=== PATIENT | female | born 1975 | race Caucasian/White ===

== ENCOUNTER 2016-12-27 13:27 | Emergency (ER) | payer BC, MEDICAID, OTHER ==
[2016-12-27 13:58] VITALS: BP 116/69
[2016-12-27] MEDS ORDERED: predniSONE 20 MG Tab PO ONE (14:28)
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
[2016-12-27] MEDS ORDERED: Acetaminophen/HYDROcodone 325-5 MG Tab PO ONE (16:42)
--- NOTE | 2016-12-28 07:49 | CR ---
Pelvis: AP view of the pelvis was obtained. Comparison: No previous study. Joint spaces within both hips are maintained. Sacroiliac joints appear within normal limits. Soft tissue calcifications are seen within both buttocks which are incidental. No fracture or other bony abnormality is seen. Impression: 1. Nothing acute is seen on AP pelvis study. Diagnostic code #2
--- NOTE | 2016-12-28 07:50 | CR ---
Lumbar spine: AP, lateral and coned-down lateral views centered to the lumbosacral junction were obtained. Slight spondylolisthesis is noted L4-L5 which is felt compatible with degenerative apophyseal change. Endplate osteophytes are seen within the lower thoracic spine and within L1. Mild disc space narrowing is noted at T12-L1. Other disc spaces are maintained. Vertebral body heights are maintained. Minimal scoliosis is noted. Pedicles as well as transverse and spinous processes are intact. Impression: 1. Mild degenerative change. Minimal scoliosis. 2. Nothing acute is appreciated on three-view lumbar spine study. Diagnostic code #2
== END 2016-12-27 16:50 | disposition home or self-care (01) ==
LOC: JD.ED 13:27
DX: S39.012A Strain of muscle, fascia and tendon of lower back, initial encounter (principal); S20.221A Contusion of right back wall of thorax, initial encounter; F41.9 Anxiety disorder, unspecified; F32.9 Major depressive disorder, single episode, unspecified; Z88.8 Allergy status to other drugs, medicaments and biological substances; Z79.899 Other long term (current) drug therapy; Z87.891 Personal history of nicotine dependence; W51.XXXA Accidental striking against or bumped into by another person, initial encounter
CPT/HCPCS: 72100; 72170; 99283; A9270

== ENCOUNTER 2017-02-05 12:42 | Emergency (ER) | payer BC, OTHER ==
[2017-02-05 13:03] VITALS: BP 130/83
[2017-02-05] MEDS ORDERED: Ketorolac 60 MG/2 ML SDV IM ONE (14:01)
[2017-02-05] MEDS ORDERED: Acetaminophen/HYDROcodone 325-5 MG Tab PO ONE (14:01)
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
== END 2017-02-05 14:50 | disposition home or self-care (01) ==
LOC: JD.ED 12:42
DX: S30.0XXA Contusion of lower back and pelvis, initial encounter (principal); K21.9 Gastro-esophageal reflux disease without esophagitis; F41.9 Anxiety disorder, unspecified; F32.9 Major depressive disorder, single episode, unspecified; Z88.8 Allergy status to other drugs, medicaments and biological substances; Z87.891 Personal history of nicotine dependence; Y04.8XXA Assault by other bodily force, initial encounter
CPT/HCPCS: 96372; 99283; A9270; J1885

== ENCOUNTER 2017-11-03 19:11 | Emergency (ER) | payer BC, MEDICAID ==
[2017-11-03] MEDS ORDERED: LORazepam 2 MG/ML SDV IVPUSH STA (19:44)
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
[2017-11-03] MEDS ORDERED: Prochlorperazine 10 MG/2 ML SDV IVPUSH ONE (20:07)
[2017-11-03] MEDS ORDERED: Magnesium Sulfate/Water 2 GM in Premix Bag 1 BAG IV ONE (21:19)
[2017-11-03] MEDS ORDERED: Potassium Chloride 10% 20 MEQ/15 ML Soln 30 ML UD Cup PO STA (22:31)
--- NOTE | 2017-11-04 06:47 | CR ---
Chest: Two views of the chest were obtained. Comparison: No prior chest x-ray. Heart size and mediastinum are normal. Lungs are clear. Bony structures appear within normal limits. Impression: 1. Nothing acute is appreciated on two-view chest x-ray. Diagnostic code #1
== END 2017-11-04 01:15 | disposition home or self-care (01) ==
LOC: JD.ED 19:11
DX: E83.42 Hypomagnesemia (principal); E87.6 Hypokalemia; F45.8 Other somatoform disorders; F41.9 Anxiety disorder, unspecified; Z88.8 Allergy status to other drugs, medicaments and biological substances; Z79.899 Other long term (current) drug therapy; Z87.891 Personal history of nicotine dependence
CPT/HCPCS: 36415; 36600; 71046; 80053; 81001; 82803; 83735; 84443; 84484; 84702; 85025; 85379; 85610; 85730; 87086; 93005; 96365; 96375; 99284; A9270; J0780; J2060; 93010; J3475

== ENCOUNTER 2019-04-20 18:45 | Observation (INO) | payer MEDICAID ==
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
--- NOTE | 2019-04-20 19:36 | CT ---
Head CT Technique: Multiple axial sections through the brain were obtained. Intravenous contrast was not utilized. Comparison: No prior intracranial imaging. Findings: Ventricles along with basal cisterns and sulci over the convexities appear within normal limits for the patient's age. Small low density finding is noted within the right basal ganglia. Differential includes an old lacunar infarct versus prominent perivascular space. No other abnormal parenchymal densities are seen. No evidence of intracranial hemorrhage. No midline shift or mass effect is seen. Mastoid sinuses are clear. Visualized paranasal sinuses show nothing acute. No acute calvarial abnormality is appreciated. Impression: 1. Small low density finding is noted within the right basal ganglia. Differential includes old lacunar infarct as well as prominent perivascular space. 2. No additional abnormality is appreciated on noncontrast head CT study. Diagnostic code #2
[2019-04-20] MEDS ORDERED: Aspirin 81 MG Tab.Chew PO STA (21:37)
[2019-04-20] MEDS: Sodium Chloride 0.9% 1,000 ML IV SCH (22:11)
[2019-04-20] MEDS ORDERED: Ketorolac 30 MG/ML SDV IV PRN (22:46)
[2019-04-20] MEDS ORDERED: Albuterol/Ipratropium 3.0-0.5 MG/3 ML Neb Soln NEB PRN (22:46)
[2019-04-20] MEDS ORDERED: Docusate Sodium 100 MG Cap PO PRN (22:46)
[2019-04-20] MEDS ORDERED: HYDROmorphone 0.5 MG/0.5 ML Syringe IVPUSH PRN (22:46)
[2019-04-20] MEDS ORDERED: Acetaminophen 325 MG Tab PO PRN (22:46)
[2019-04-20] MEDS ORDERED: Polyethylene Glycol 3350 Powder 17 GM Packet PO PRN (22:46)
[2019-04-20] MEDS ORDERED: Promethazine 6.25 MG in Sodium Chloride 0.9% 50 ML IV PRN (22:46)
[2019-04-20] MEDS ORDERED: Bisacodyl 5 MG Tab PO PRN (22:46)
[2019-04-20] MEDS ORDERED: Ondansetron 4 MG/2 ML SDV IV PRN (22:46)
[2019-04-20] MEDS ORDERED: Temazepam 15 MG Cap PO PRN (22:46)
[2019-04-20] MEDS ORDERED: LORazepam 2 MG/ML SDV IV PRN (22:46)
--- NOTE | 2019-04-20 22:46 | PCM.HP.2 ---
H&P History of Present Illness - General Date of Service: 04/20/19 Admit Problem/Dx: Admission Diagnosis/Problem Admission Diagnosis/Problem Paresthesia Source of Information: Patient, Old Records, Provider, RN Notes Reviewed History Limitations: Reports: No Limitations - History of Present Illness Initial Comments - Free Text/Narative: This is a 43 yo female with past medical hx/o Impaired Vision, GERD, Arthritis, Nicotine Uses Disorder, Anxiety, and Depression who comes in for evaluation of left upper extremity numbness as as well diffuse paresthesia that started after she woke up past 9 AM this morning. She denies any hx/o TIA or CVA. She denies any associated symptoms. Her initial work up in ED was unremarkable. Her Head CT scan report read as small low-density finding is noted within the right basal ganglia. Differential includes old lacunar infarct as well as prominent perivascular space. No additional abnormality is appreciated on noncontrast head CT study. Her case was discussed with Dr. Hampton, Neurologist, in [place] and he recommended patient to be admitted for stroke work up. - Related Data Allergies/Adverse Reactions: Allergies Allergy/AdvReac Type Severity Reaction Status Date / Time methylprednisolone Allergy Itching Verified 11/03/17 19:20 [From Medrol] Past Medical History - Past Health History Medical/Surgical History: Denies Medical/Surgical History HEENT History: Reports: Impaired Vision Gastrointestinal History: Reports: GERD Musculoskeletal History: Reports: Arthritis (spine), Fracture (left forearm) Other Musculoskeletal History: bilateral hand pain Psychiatric History: Reports: Anxiety, Depression Endocrine/Metabolic History: Reports: Obesity/BMI 30+ - Infectious Disease History Infectious Disease History: Reports: Chicken Pox - Past Surgical History Musculoskeletal Surgical History: Reports: Carpal Tunnel (right only), Nerve Relocation (;eft ulnar, 10/18/2017), ORIF (left forearm) Social & Family History - Family History Family Medical History: Noncontributory - Tobacco Use Smoking Status *Q: Current Every Day Smoker Years of Tobacco use: 36 Packs/Tins Daily: 2 - Caffeine Use Caffeine Use: Reports: Soda - Recreational Drug Use Recreational Drug Use: Yes Drug Use in Last 12 Months: No Recreational Drug Type: Reports: Marijuana/Hashish (last smoked when 16 or 17 years old) - Living Situation & Occupation Living situation: Reports: Single, Alone Occupation: Unemployed H&P Review of Systems - Review of Systems: Review Of Systems: ROS reveals no pertinent complaints other than HPI. Exam - Exam Exam: See Below - Vital Signs Vital Signs: Last Vital Signs Temp 36.1 C 04/20/19 19:07 Pulse 86 04/20/19 19:07 Resp 20 04/20/19 19:07 BP 113/78 04/20/19 19:07 Pulse Ox 100 04/20/19 19:07 Orthostatic Blood Pressure [ 113/79 Standing] Orthostatic Blood Pressure [ 106/70 Sitting] Orthostatic Blood Pressure [ 107/72 Supine] Weight: 58.967 kg - Exam General: Alert, Oriented, Cooperative HEENT: Conjunctiva Clear, EACs Clear, EOMI, Hearing Intact, Mucosa Moist & [place] , Nares Patent, Normal Nasal Septum, Posterior Pharynx Clear, Pupils Equal, Pupils Reactive Neck: Supple, Trachea Midline Lungs: Clear to Auscultation, Normal Respiratory Effort Cardiovascular: Regular Rate, Regular Rhythm GI/Abdominal Exam: Normal Bowel Sounds, Soft, Non-Tender, No Organomegaly, No Distention, No Abnormal Bruit (Female) Exam: Deferred Rectal (Female) Exam: Deferred Back Exam: Normal Inspection, Decreased Range of Motion Extremities: Normal Inspection, Normal Range of Motion, Non-Tender, No Pedal Edema, Normal Capillary Refill Peripheral Pulses: 2+: Posterior Tibial (L), Posterior Tibial (R), Dorsalis Pedis (L), Dorsalis Pedis (R) Skin: Warm, Dry, Intact Neuro Extensive - Mental Status: Oriented x3, Normal Cognition, Memory Intact Neuro Extensive - Motor, Sensory, Reflexes: Normal Gait, Other (Paresthesia on left leg: "ants crawling"; weakness on right upper extermity), Motor/Sensory Deficits (Left Upper Extremity: reduced sensation and some weakness). No: CN II -XII Intact, Tremor - Patient Data Lab Results Last 24 hrs: Laboratory Results - last 24 hr 04/20/19 04/20/19 04/20/19 Range/Units 19:03 19:29 19:29 WBC 7.89 (3.98-10.04) K/mm3 RBC 4.26 (3.98-5.22) M/mm3 Hgb 12.9 (11.2-15.7) gm/L Hct 39.0 (34.1-44.9) % MCV 91.5 D (79.4-94.8) fl MCH 30.3 (25.6-32.2) pg MCHC 33.1 (32.2-35.5) g/dl RDW Std Deviation 43.8 (36.4-46.3) fL Plt Count 299 D (182-369) K/mm3 MPV 8.9 L (9.4-12.3) fl Neut % (Auto) 57.0 (34.0-71.1) % Lymph % (Auto) 35.1 (19.3-51.7) % [place] % (Auto) 7.0 (4.7-12.5) % Eos % (Auto) 0.5 L (0.7-5.8) Baso % (Auto) 0.1 (0.1-1.2) % Neut # (Auto) 4.50 (1.56-6.13) K/mm3 Lymph # (Auto) 2.77 (1.18-3.74) K/mm3 [place] # (Auto) 0.55 H (0.24-0.36) K/mm3 Eos # (Auto) 0.04 (0.04-0.36) K/mm3 Baso # (Auto) 0.01 (0.01-0.08) K/mm3 D-Dimer, Quantitative (0.19-0.50) mg/L Puncture Site ABG pH (7.35-7.45) ABG pCO2 (35.0-45.0) mmHg ABG pO2 (80.0-100.0) mmHg ABG HCO3 (22.0-26.0) meq/L ABG O2 Saturation (96.0-97.0) % ABG Base Excess (-2-2.0) Talha Test A-a Gradient mmHg O2 Delivery Device FiO2 (21.00-100.00) % Sodium 143 (136-145) mEq/L Potassium 3.7 (3.5-5.1) mEq/L Chloride 107 D (98-107) mEq/L Carbon Dioxide 28 (21-32) mEq/L Anion Gap 11.7 (5-15) BUN 17 (7-18) mg/dL Creatinine 0.6 (0.55-1.02) mg/dL Est Cr Clr Drug Dosing 85.05 mL/min Estimated GFR (MDRD) > 60 (>60) mL/min BUN/Creatinine Ratio 28.3 H (14-18) Glucose 91 (74-106) mg/dL POC Glucose 80 (70-105) mg/dL Calcium 9.0 (8.5-10.1) mg/dL Magnesium 1.8 (1.8-2.4) mg/dl Total Bilirubin 0.2 (0.2-1.0) mg/dL AST 16 (15-37) U/L ALT 20 (14-59) U/L Alkaline Phosphatase 73 (46-116) U/L Troponin I < 0.017 (0.00-0.056) ng/mL Total Protein 6.9 (6.4-8.2) g/dl Albumin 3.2 L (3.4-5.0) g/dl Globulin 3.7 gm/dL Albumin/Globulin Ratio 0.9 L (1-2) TSH 3rd Generation 1.926 (0.358-3.74) uIU/mL Urine Color (Yellow) Urine Appearance (Clear) Urine pH (5.0-8.0) Ur Specific [place] (1.005-1.030) Urine Protein (Negative) Urine Glucose (UA) (Negative) Urine Ketones (Negative) Urine Occult Blood (Negative) Urine Nitrite (Negative) Urine Bilirubin (Negative) Urine Urobilinogen (0.2-1.0) Ur Leukocyte Esterase (Negative) Urine RBC (0-5) /hpf Urine WBC (0-5) /hpf Ur Squamous Epith Cells (0-5) /hpf Amorphous Sediment (NOT SEEN) /hpf Urine Bacteria (FEW) /hpf Urine Mucus (FEW) /hpf Urine HCG, Qual (NEGATIVE) 04/20/19 04/20/19 04/20/19 Range/Units 19:29 19:40 20:30 WBC (3.98-10.04) K/mm3 RBC (3.98-5.22) M/mm3 Hgb (11.2-15.7) gm/L Hct (34.1-44.9) % MCV (79.4-94.8) fl MCH (25.6-32.2) pg MCHC (32.2-35.5) g/dl RDW Std Deviation (36.4-46.3) fL Plt Count (182-369) K/mm3 MPV (9.4-12.3) fl Neut % (Auto) (34.0-71.1) % Lymph % (Auto) (19.3-51.7) % [place] % (Auto) (4.7-12.5) % Eos % (Auto) (0.7-5.8) Baso % (Auto) (0.1-1.2) % Neut # (Auto) (1.56-6.13) K/mm3 Lymph # (Auto) (1.18-3.74) K/mm3 [place] # (Auto) (0.24-0.36) K/mm3 Eos # (Auto) (0.04-0.36) K/mm3 Baso # (Auto) (0.01-0.08) K/mm3 D-Dimer, Quantitative 0.20 (0.19-0.50) mg/L Puncture Site Rt radial ABG pH 7.47 H (7.35-7.45) ABG pCO2 34.5 L (35.0-45.0) mmHg ABG pO2 102.0 H (80.0-100.0) mmHg ABG HCO3 24.9 (22.0-26.0) meq/L ABG O2 Saturation 98.6 H (96.0-97.0) % ABG Base Excess 2.0 (-2-2.0) Talha Test Positive A-a Gradient 5 mmHg O2 Delivery Device Room air FiO2 21.00 (21.00-100.00) % Sodium (136-145) mEq/L Potassium (3.5-5.1) mEq/L Chloride (98-107) mEq/L Carbon Dioxide (21-32) mEq/L Anion Gap (5-15) BUN (7-18) mg/dL Creatinine (0.55-1.02) mg/dL Est Cr Clr Drug Dosing mL/min Estimated GFR (MDRD) (>60) mL/min BUN/Creatinine Ratio (14-18) Glucose (74-106) mg/dL POC Glucose (70-105) mg/dL Calcium (8.5-10.1) mg/dL Magnesium (1.8-2.4) mg/dl Total Bilirubin (0.2-1.0) mg/dL AST (15-37) U/L ALT (14-59) U/L Alkaline Phosphatase (46-116) U/L Troponin I (0.00-0.056) ng/mL Total Protein (6.4-8.2) g/dl Albumin (3.4-5.0) g/dl Globulin gm/dL Albumin/Globulin Ratio (1-2) TSH 3rd Generation (0.358-3.74) uIU/mL Urine Color Yellow (Yellow) Urine Appearance Cloudy H (Clear) Urine pH 8.5 H (5.0-8.0) Ur Specific [place] 1.020 (1.005-1.030) Urine Protein Negative (Negative) Urine Glucose (UA) Negative (Negative) Urine Ketones Negative (Negative) Urine Occult Blood Negative (Negative) Urine Nitrite Negative (Negative) Urine Bilirubin Negative (Negative) Urine Urobilinogen 0.2 (0.2-1.0) Ur Leukocyte Esterase Negative (Negative) Urine RBC 0-5 (0-5) /hpf Urine WBC 0-5 (0-5) /hpf Ur Squamous Epith Cells 0-5 (0-5) /hpf Amorphous Sediment Many H (NOT SEEN) /hpf Urine Bacteria Few (FEW) /hpf Urine Mucus Not seen (FEW) /hpf Urine HCG, Qual (NEGATIVE) 04/20/19 Range/Units 20:30 WBC (3.98-10.04) K/mm3 RBC (3.98-5.22) M/mm3 Hgb (11.2-15.7) gm/L Hct (34.1-44.9) % MCV (79.4-94.8) fl MCH (25.6-32.2) pg MCHC (32.2-35.5) g/dl RDW Std Deviation (36.4-46.3) fL Plt Count (182-369) K/mm3 MPV (9.4-12.3) fl Neut % (Auto) (34.0-71.1) % Lymph % (Auto) (19.3-51.7) % [place] % (Auto) (4.7-12.5) % Eos % (Auto) (0.7-5.8) Baso % (Auto) (0.1-1.2) % Neut # (Auto) (1.56-6.13) K/mm3 Lymph # (Auto) (1.18-3.74) K/mm3 [place] # (Auto) (0.24-0.36) K/mm3 Eos # (Auto) (0.04-0.36) K/mm3 Baso # (Auto) (0.01-0.08) K/mm3 D-Dimer, Quantitative (0.19-0.50) mg/L Puncture Site ABG pH (7.35-7.45) ABG pCO2 (35.0-45.0) mmHg ABG pO2 (80.0-100.0) mmHg ABG HCO3 (22.0-26.0) meq/L ABG O2 Saturation (96.0-97.0) % ABG Base Excess (-2-2.0) [place]ha Test A-a Gradient mmHg O2 Delivery Device FiO2 (21.00-100.00) % Sodium (136-145) mEq/L Potassium (3.5-5.1) mEq/L Chloride (98-107) mEq/L Carbon Dioxide (21-32) mEq/L Anion Gap (5-15) BUN (7-18) mg/dL Creatinine (0.55-1.02) mg/dL Est Cr Clr Drug Dosing mL/min Estimated GFR (MDRD) (>60) mL/min BUN/Creatinine Ratio (14-18) Glucose (74-106) mg/dL POC Glucose (70-105) mg/dL Calcium (8.5-10.1) mg/dL Magnesium (1.8-2.4) mg/dl Total Bilirubin (0.2-1.0) mg/dL AST (15-37) U/L ALT (14-59) U/L Alkaline Phosphatase (46-116) U/L Troponin I (0.00-0.056) ng/mL Total Protein (6.4-8.2) g/dl Albumin (3.4-5.0) g/dl Globulin gm/dL Albumin/Globulin Ratio (1-2) TSH 3rd Generation (0.358-3.74) uIU/mL Urine Color (Yellow) Urine Appearance (Clear) Urine pH (5.0-8.0) Ur Specific [place] (1.005-1.030) Urine Protein (Negative) Urine Glucose (UA) (Negative) Urine Ketones (Negative) Urine Occult Blood (Negative) Urine Nitrite (Negative) Urine Bilirubin (Negative) Urine Urobilinogen (0.2-1.0) Ur Leukocyte Esterase (Negative) Urine RBC (0-5) /hpf Urine WBC (0-5) /hpf Ur Squamous Epith Cells (0-5) /hpf Amorphous Sediment (NOT SEEN) /hpf Urine Bacteria (FEW) /hpf Urine Mucus (FEW) /hpf Urine HCG, Qual Negative (NEGATIVE) Result Diagrams: 04/21/19 05:26 04/21/19 05:26 EKG INTERPRETATION EKG Date: 04/20/19 Time: 19:22 Rhythm: NSR Rate (Beats/Min): 85 [place]: LAD-Left [place] Deviation P-Wave: Present QRS: Normal ST-T: Normal QT: Normal Comparison: Change From Previous EKG Problem List Initiated/Reviewed/Updated: Yes Orders Last 24hrs: Active Orders 24 hr Category Date Time Status Patient Status [ADT] Routine ADT 04/20/19 22:23 Active Accu Check [Blood Glucose Check, Bedside] [RC] ONETIME Care 04/20/19 19:08 Active EKG Documentation Completion [RC] STAT Care 04/20/19 19:09 Active Orthostatic Vital Signs [RC] STAT Care 04/20/19 19:09 Active Ang Head [CT] Routine Exams 04/21/19 08:00 Ordered Ang Neck [CT] Routine Exams 04/21/19 08:00 Ordered Chest 2V [CR] Stat Exams 04/20/19 19:27 Taken Sodium Chloride 0.9% [Normal Saline] 1,000 ml Med 04/20/19 22:00 Active IV ASDIRECTED Medication Orders Sodium Chloride (Normal Saline) 1,000 mls @ 100 mls/hr IV ASDIRECTED DAVID Last Admin: 04/20/19 22:11 Dose: 100 mls/hr Assessment/Plan Comment:: Assessment: Acute: Stroke/CVA - Risk Factors: None - Left upper extremity numbness and paresthesia that started after 9 AM ( woke up from sleep) - NIH score of 4 in ED; 0-[address] - She received ASA in ED; will continue in AM - Case discussed with neurologist (Dr. Hampton) in [place] by ED Provider; recommendations were to give the patient aspirin, perform a CT angiogram of her head and neck, then admit her for an MRI in the morning - Head CT scan report read as small low-density finding is noted within the right basal ganglia. Differential includes old lacunar infarct as well as prominent perivascular space. No additional abnormality is appreciated on noncontrast head CT study. Note: There are no prior CT scans of the head or MRIs of the brain to compare - Stroke/TIA: Brain MRI, 2D echo in AM, Telemetry, Lipid Panel, [employer], and PT/ OT - Neurological exam per unit protocol - DDx: Psych induced neurological symptoms Nicotine Use Disorder - Quit in 2014 but went back to smoking lately - smokes about 1.5 ppd - Counseled on Smoking Cessation - Nicotine Patch daily Depression with Psychotic features - She is seeing things i.e bubbles - Diagnosed in the past with psychosis - Dr. Bucio consult Chronic: Impaired Vision, GERD, Arthritis, Nicotine Uses Disorder, Anxiety, and Depression Plan: Admit to OBS with Tele Resume Home Meds Routine AM Labs UA and screening negative Head and Neck CTA ordered in ED Stroke/TIA Work up as above Bedside swallow eval ASA and Statin UDS RT/PT/OT to assess and treat Fall precautions SW/CM for d/c planning Code status: full Additional orders as above - Mortality Measure Prognosis:: Good
[2019-04-21] MEDS ORDERED: Sodium Chloride 0.9% 10 ML Syringe FLUSH PRN (07:46)
[2019-04-21] MEDS ORDERED: Iopamidol 755 Mg/ML 100 ML Bottle IVPUSH ONE (07:46)
[2019-04-21] MEDS ORDERED: Sodium Chloride 0.9% 100 ML IV SCH (08:00)
[2019-04-21] MEDS ORDERED: Nicotine 21 MG/24 Hr Patch TRDERM SCH (09:00)
[2019-04-21] MEDS ORDERED: Aspirin 81 MG Tab.EC PO SCH (09:00)
[2019-04-21] MEDS: Sodium Chloride 0.9% 1,000 ML IV SCH (09:03)
--- NOTE | 2019-04-21 09:10 | CR ---
Chest: Two views of the chest were obtained. Comparison: Prior chest x-ray of 11/03/17. Heart size and mediastinum are normal. Lungs are clear. Bony structures are unremarkable for the patient's age. Impression: 1. Nothing acute is appreciated on two-view chest x-ray. Diagnostic code #1
--- NOTE | 2019-04-21 09:28 | MR ---
MRI brain Technique: T1 sagittal; T2, T2 FLAIR, T1 and diffusion axial; T1 and T2 gradient echo coronal images were obtained. Comparison: Previous head CT study of 04/20/19. Findings: Ventricles along with basal cisterns and sulci over the convexities are within normal limits for the patient's age. Normal signal void is seen within the major cerebral arteries within the skull base. Minimally prominent perivascular spaces are seen within both basal ganglia which is a normal variant. No abnormal signal is seen within the brain parenchyma. No midline shift or mass effect is seen. No acute diffusion abnormalities are seen. Impression: 1. Incidental perivascular spaces within both basal ganglia. 2. MRI study of the brain is otherwise unremarkable. There is specifically no acute diffusion abnormalities being identified. Diagnostic code #2
--- NOTE | 2019-04-21 10:13 | CT ---
CT angiogram of neck Technique: Multiple axial sections through the neck were obtained. Intravenous contrast was utilized. Multiple minute images were obtained. Findings: Small portion of the visualized lung apices are clear. Scattered lymph nodes are seen which are felt to be within normal limits. Parotid and submandibular salivary glands are unremarkable. No neck mass is seen. Common carotid arteries on both sides are patent. Vertebral arteries on both sides are patent. Carotid bulbs on both sides appear within normal limits. Internal carotid arteries also appear within normal limits. No focal stenosis or occlusion is seen. No dissection is identified. Proximal visualized left subclavian artery is patent. Impression: 1. No abnormality is appreciated on CT angiogram of the neck. Diagnostic code #1
--- NOTE | 2019-04-21 10:13 | CT ---
MR angiogram of brain Technique: Multiple axial sections through the brain were obtained. Intravenous contrast was utilized. Study performed as a CT angiogram protocol. Multiple MIP images were obtained in multiple projections. Comparison: Distal vertebral arteries are patent. Basilar artery is patent. Both distal internal carotid arteries are patent. Middle and anterior cerebral arteries are patent without focal narrowing or occlusion. Both posterior cerebral arteries also appear patent with no stenosis or occlusion. Impression: 1. No abnormality is identified on CT angiogram study centered to the [place]. Diagnostic code #1
[2019-04-21] MEDS ORDERED: risperiDONE 0.5 MG Tab PO SCH (11:15)
--- NOTE | 2019-04-21 14:38 | PCM.DCSUM1 ---
Discharge Summary - Hospital Course Free Text/Narrative:: 43 year old female with somatic compliants and hx of bipolar symptoms doing better and restarted on meds hx of angioedema on meds and ? lithium hx of constipation hx of insomnia chronic. HPI Initial Comments: see admit note Diagnosis: Stroke: No - Discharge Data Discharge Date: 04/21/19 Discharge Disposition: Home, Self-Care 01 Condition: Good - Discharge Diagnosis/Problem(s) (1) Bipolar disorder (manic depression) SNOMED Code(s): 68406133 ICD Code: F31.9 - BIPOLAR DISORDER, UNSPECIFIED Status: Acute Priority: High Current Visit: Yes Onset Date: 04/20/19 Problem Details: she has not been on any meds and had angioedema to some med ? lithium / // starting new meds but she does not follow up or comply and is at risk and this was discussed in detail with her . Qualifiers: Active/Remission status: currently active Current bipolar episode type: hypomanic Qualified Code(s): F31.0 - Bipolar disorder, current episode hypomanic (2) Paresthesia of left arm and leg SNOMED Code(s): 29316853, [id number], [id number] ICD Code: R20.2 - PARESTHESIA OF SKIN Status: Acute Priority: Low Current Visit: Yes Onset Date: 04/20/19 - Patient Summary/Data Consults: Consultations 04/20/19 22:46 Consult to Case Management/Manager Of Training [CONS] Routine OT Evaluation and Treatment [CONS] Routine PT Evaluation and Treatment [CONS] Routine [employer] Evaluation and Treatment [CONS] Routine 04/20/19 23:20 Consult to Physician [CONS] Routine - Patient Instructions Diet: Heart Healthy Diet Activity: As Tolerated Driving: May Drive Today Other/Special Instructions: follow up if not doing well with meds with primary provider - Discharge Plan *PRESCRIPTION DRUG MONITORING PROGRAM REVIEWED*: Not Applicable *COPY OF PRESCRIPTION DRUG MONITORING REPORT IN PATIENT ESTEPHANIE: Not Applicable Prescriptions/Med Rec: QUEtiapine [SEROquel] 50 mg PO QPM #30 tab Sennosides/Docusate Sodium [Senna-Docusate Sodium Tablet] 2 each PO DAILY 60 Days #60 tablet Temazepam [Restoril] 15 mg PO BEDTIME PRN #30 cap PRN Reason: Sleep Topiramate [Topamax] 25 mg PO BID #60 tab Home Medications: Home Meds Acetaminophen [Tylenol] 650 mg PO Q4H PRN tablet 04/21/19 [Rx] Albuterol/Ipratropium [DuoNeb 3.0-0.5 MG/3 ML] 3 ml NEB Q4H PRN neb 04/21/19 [ Rx] Aspirin [Halfprin] 81 mg PO DAILY tab.ec 04/21/19 [Rx] QUEtiapine [SEROquel] 50 mg PO QPM #30 tab 04/21/19 [Rx] Sennosides/Docusate Sodium [Senna-Docusate Sodium Tablet] 2 each PO DAILY 60 Days #60 tablet 04/21/19 [Rx] Temazepam [Restoril] 15 mg PO BEDTIME PRN #30 cap 04/21/19 [Rx] Topiramate [Topamax] 25 mg PO BID #60 tab 04/21/19 [Rx] Patient Handouts: Steps to Quit Smoking Referrals: Jacques Roberson MD [Primary Care Provider] - 05/04/19 3:30 pm (Please check in at 3:15pm checkin time; you have been placed a cancellation list, if an earlier appointment becomes available the clinic will contact you to be seen sooner.) - Discharge Summary/Plan Comment DC Time >30 min.: Yes - General Info Date of Service: 04/21/19 Admission Dx/Problem (Free Text: Admission Diagnosis/Problem Admission Diagnosis/Problem Paresthesia consult Dr Bucio rec. she can be discharged and start meds and follow up. hx of angioedema hold [place] as she has not been taking x 3 months hx of bipolar symptoms start seraquel start topamax. dc lamictal. dc zyperexia. see primary provider next week. DR Bucio in 2-3 weeks - Review of Systems General: Reports: No Symptoms HEENT: Reports: No Symptoms Pulmonary: Reports: No Symptoms Cardiovascular: Reports: No Symptoms Gastrointestinal: Reports: No Symptoms Genitourinary: Reports: No Symptoms Musculoskeletal: Reports: No Symptoms Skin: Reports: No Symptoms Neurological: Reports: No Symptoms Psychiatric: Reports: No Symptoms - Patient Data Vitals - Most Recent: Last Vital Signs Temp 37.0 C 04/21/19 05:31 Pulse 68 04/21/19 05:31 Resp 14 04/21/19 05:31 BP 93/62 04/21/19 05:31 Pulse Ox 96 04/21/19 05:31 Orthostatic Blood Pressure [ 113/79 Standing] Orthostatic Blood Pressure [ 106/70 Sitting] Orthostatic Blood Pressure [ 107/72 Supine] Weight - Most Recent: 58.967 kg I&O - Last 24 hours: Intake & Output 04/20/19 04/21/19 04/21/19 22:59 06:59 14:59 Intake Total 1065 Balance 1065 Lab Results - Last 24 hrs: Laboratory Results - last 24 hr 04/20/19 04/20/19 04/20/19 Range/Units 19:03 19:29 19:29 WBC 7.89 (3.98-10.04) K/mm3 RBC 4.26 (3.98-5.22) M/mm3 Hgb 12.9 (11.2-15.7) gm/L Hct 39.0 (34.1-44.9) % MCV 91.5 D (79.4-94.8) fl MCH 30.3 (25.6-32.2) pg MCHC 33.1 (32.2-35.5) g/dl RDW Std Deviation 43.8 (36.4-46.3) fL Plt Count 299 D (182-369) K/mm3 MPV 8.9 L (9.4-12.3) fl Neut % (Auto) 57.0 (34.0-71.1) % Lymph % (Auto) 35.1 (19.3-51.7) % [place] % (Auto) 7.0 (4.7-12.5) % Eos % (Auto) 0.5 L (0.7-5.8) Baso % (Auto) 0.1 (0.1-1.2) % Neut # (Auto) 4.50 (1.56-6.13) K/mm3 Lymph # (Auto) 2.77 (1.18-3.74) K/mm3 [place] # (Auto) 0.55 H (0.24-0.36) K/mm3 Eos # (Auto) 0.04 (0.04-0.36) K/mm3 Baso # (Auto) 0.01 (0.01-0.08) K/mm3 D-Dimer, Quantitative (0.19-0.50) mg/L Puncture Site ABG pH (7.35-7.45) ABG pCO2 (35.0-45.0) mmHg ABG pO2 (80.0-100.0) mmHg ABG HCO3 (22.0-26.0) meq/L ABG O2 Saturation (96.0-97.0) % ABG Base Excess (-2-2.0) Talha Test A-a Gradient mmHg O2 Delivery Device FiO2 (21.00-100.00) % Sodium 143 (136-145) mEq/L Potassium 3.7 (3.5-5.1) mEq/L Chloride 107 D (98-107) mEq/L Carbon Dioxide 28 (21-32) mEq/L Anion Gap 11.7 (5-15) BUN 17 (7-18) mg/dL Creatinine 0.6 (0.55-1.02) mg/dL Est Cr Clr Drug Dosing 85.05 mL/min Estimated GFR (MDRD) > 60 (>60) mL/min BUN/Creatinine Ratio 28.3 H (14-18) Glucose 91 (74-106) mg/dL POC Glucose 80 (70-105) mg/dL Calcium 9.0 (8.5-10.1) mg/dL Magnesium 1.8 (1.8-2.4) mg/dl Total Bilirubin 0.2 (0.2-1.0) mg/dL AST 16 (15-37) U/L ALT 20 (14-59) U/L Alkaline Phosphatase 73 (46-116) U/L Troponin I < 0.017 (0.00-0.056) ng/mL Total Protein 6.9 (6.4-8.2) g/dl Albumin 3.2 L (3.4-5.0) g/dl Globulin 3.7 gm/dL Albumin/Globulin Ratio 0.9 L (1-2) Triglycerides (<150) mg/dL Cholesterol (<200) mg/dL LDL Cholesterol Direct (<100) mg/dL HDL Cholesterol (40-59) mg/dL TSH 3rd Generation 1.926 (0.358-3.74) uIU/mL Urine Color (Yellow) Urine Appearance (Clear) Urine pH (5.0-8.0) Ur Specific [place] (1.005-1.030) Urine Protein (Negative) Urine Glucose (UA) (Negative) Urine Ketones (Negative) Urine Occult Blood (Negative) Urine Nitrite (Negative) Urine Bilirubin (Negative) Urine Urobilinogen (0.2-1.0) Ur Leukocyte Esterase (Negative) Urine RBC (0-5) /hpf Urine WBC (0-5) /hpf Ur Squamous Epith Cells (0-5) /hpf Amorphous Sediment (NOT SEEN) /hpf Urine Bacteria (FEW) /hpf Urine Mucus (FEW) /hpf Urine HCG, Qual (NEGATIVE) Urine Opiates Screen (ALMSPY=876) Ur Buprenorphine Scrn (CUTOFF=10) Ur Oxycodone Screen (MWL3GM=428) Urine Methadone Screen (FDDAEV=506) Ur Propoxyphene Screen (SHGCPD=681) Ur Barbiturates Screen (VEQXJV=902) Ur Tricyclics Screen (OJBZPF=621) Ur Phencyclidine Scrn (CUTOFF=25) Ur Amphetamine Screen (WBKCPV=987) U Methamphetamines Scrn (ZQXKHI=167) U Benzodiazepines Scrn (WPIXEJ=146) U Cocaine Metab Screen (COKBGV=574) U Marijuana (THC) Screen (CUTOFF=50) 04/20/19 04/20/19 04/20/19 Range/Units 19:29 19:40 20:30 WBC (3.98-10.04) K/mm3 RBC (3.98-5.22) M/mm3 Hgb (11.2-15.7) gm/L Hct (34.1-44.9) % MCV (79.4-94.8) fl MCH (25.6-32.2) pg MCHC (32.2-35.5) g/dl RDW Std Deviation (36.4-46.3) fL Plt Count (182-369) K/mm3 MPV (9.4-12.3) fl Neut % (Auto) (34.0-71.1) % Lymph % (Auto) (19.3-51.7) % [place] % (Auto) (4.7-12.5) % Eos % (Auto) (0.7-5.8) Baso % (Auto) (0.1-1.2) % Neut # (Auto) (1.56-6.13) K/mm3 Lymph # (Auto) (1.18-3.74) K/mm3 [place] # (Auto) (0.24-0.36) K/mm3 Eos # (Auto) (0.04-0.36) K/mm3 Baso # (Auto) (0.01-0.08) K/mm3 D-Dimer, Quantitative 0.20 (0.19-0.50) mg/L Puncture Site Rt radial ABG pH 7.47 H (7.35-7.45) ABG pCO2 34.5 L (35.0-45.0) mmHg ABG pO2 102.0 H (80.0-100.0) mmHg ABG HCO3 24.9 (22.0-26.0) meq/L ABG O2 Saturation 98.6 H (96.0-97.0) % ABG Base Excess 2.0 (-2-2.0) Talha Test Positive A-a Gradient 5 mmHg O2 Delivery Device Room air FiO2 21.00 (21.00-100.00) % Sodium (136-145) mEq/L Potassium (3.5-5.1) mEq/L Chloride (98-107) mEq/L Carbon Dioxide (21-32) mEq/L Anion Gap (5-15) BUN (7-18) mg/dL Creatinine (0.55-1.02) mg/dL Est Cr Clr Drug Dosing mL/min Estimated GFR (MDRD) (>60) mL/min BUN/Creatinine Ratio (14-18) Glucose (74-106) mg/dL POC Glucose (70-105) mg/dL Calcium (8.5-10.1) mg/dL Magnesium (1.8-2.4) mg/dl Total Bilirubin (0.2-1.0) mg/dL AST (15-37) U/L ALT (14-59) U/L Alkaline Phosphatase (46-116) U/L Troponin I (0.00-0.056) ng/mL Total Protein (6.4-8.2) g/dl Albumin (3.4-5.0) g/dl Globulin gm/dL Albumin/Globulin Ratio (1-2) Triglycerides (<150) mg/dL Cholesterol (<200) mg/dL LDL Cholesterol Direct (<100) mg/dL HDL Cholesterol (40-59) mg/dL TSH 3rd Generation (0.358-3.74) uIU/mL Urine Color Yellow (Yellow) Urine Appearance Cloudy H (Clear) Urine pH 8.5 H (5.0-8.0) Ur Specific [place] 1.020 (1.005-1.030) Urine Protein Negative (Negative) Urine Glucose (UA) Negative (Negative) Urine Ketones Negative (Negative) Urine Occult Blood Negative (Negative) Urine Nitrite Negative (Negative) Urine Bilirubin Negative (Negative) Urine Urobilinogen 0.2 (0.2-1.0) Ur Leukocyte Esterase Negative (Negative) Urine RBC 0-5 (0-5) /hpf Urine WBC 0-5 (0-5) /hpf Ur Squamous Epith Cells 0-5 (0-5) /hpf Amorphous Sediment Many H (NOT SEEN) /hpf Urine Bacteria Few (FEW) /hpf Urine Mucus Not seen (FEW) /hpf Urine HCG, Qual (NEGATIVE) Urine Opiates Screen (JXCKDK=374) Ur Buprenorphine Scrn (CUTOFF=10) Ur Oxycodone Screen (QYU9RY=959) Urine Methadone Screen (HAVEPF=106) Ur Propoxyphene Screen (MCGQEQ=139) Ur Barbiturates Screen (BFGLIL=995) Ur Tricyclics Screen (HTNWDS=786) Ur Phencyclidine Scrn (CUTOFF=25) Ur Amphetamine Screen (ICJPSA=892) U Methamphetamines Scrn (HOOULV=741) U Benzodiazepines Scrn (FBTYAG=347) U Cocaine Metab Screen (JAEFNQ=660) U Marijuana (THC) Screen (CUTOFF=50) 04/20/19 04/20/19 04/21/19 Range/Units 20:30 20:30 05:26 WBC 7.86 (3.98-10.04) K/mm3 RBC 3.95 L (3.98-5.22) M/mm3 Hgb 12.0 (11.2-15.7) gm/L Hct 36.6 (34.1-44.9) % MCV 92.7 (79.4-94.8) fl MCH 30.4 (25.6-32.2) pg MCHC 32.8 (32.2-35.5) g/dl RDW Std Deviation 44.3 (36.4-46.3) fL Plt Count 284 (182-369) K/mm3 MPV 9.2 L (9.4-12.3) fl Neut % (Auto) 59.1 (34.0-71.1) % Lymph % (Auto) 31.8 (19.3-51.7) % [place] % (Auto) 8.0 (4.7-12.5) % Eos % (Auto) 0.9 (0.7-5.8) Baso % (Auto) 0.1 (0.1-1.2) % Neut # (Auto) 4.64 (1.56-6.13) K/mm3 Lymph # (Auto) 2.50 (1.18-3.74) K/mm3 [place] # (Auto) 0.63 H (0.24-0.36) K/mm3 Eos # (Auto) 0.07 (0.04-0.36) K/mm3 Baso # (Auto) 0.01 (0.01-0.08) K/mm3 D-Dimer, Quantitative (0.19-0.50) mg/L Puncture Site ABG pH (7.35-7.45) ABG pCO2 (35.0-45.0) mmHg ABG pO2 (80.0-100.0) mmHg ABG HCO3 (22.0-26.0) meq/L ABG O2 Saturation (96.0-97.0) % ABG Base Excess (-2-2.0) Talha Test A-a Gradient mmHg O2 Delivery Device FiO2 (21.00-100.00) % Sodium (136-145) mEq/L Potassium (3.5-5.1) mEq/L Chloride (98-107) mEq/L Carbon Dioxide (21-32) mEq/L Anion Gap (5-15) BUN (7-18) mg/dL Creatinine (0.55-1.02) mg/dL Est Cr Clr Drug Dosing mL/min Estimated GFR (MDRD) (>60) mL/min BUN/Creatinine Ratio (14-18) Glucose (74-106) mg/dL POC Glucose (70-105) mg/dL Calcium (8.5-10.1) mg/dL Magnesium (1.8-2.4) mg/dl Total Bilirubin (0.2-1.0) mg/dL AST (15-37) U/L ALT (14-59) U/L Alkaline Phosphatase (46-116) U/L Troponin I (0.00-0.056) ng/mL Total Protein (6.4-8.2) g/dl Albumin (3.4-5.0) g/dl Globulin gm/dL Albumin/Globulin Ratio (1-2) Triglycerides (<150) mg/dL Cholesterol (<200) mg/dL LDL Cholesterol Direct (<100) mg/dL HDL Cholesterol (40-59) mg/dL TSH 3rd Generation (0.358-3.74) uIU/mL Urine Color (Yellow) Urine Appearance (Clear) Urine pH (5.0-8.0) Ur Specific [place] (1.005-1.030) Urine Protein (Negative) Urine Glucose (UA) (Negative) Urine Ketones (Negative) Urine Occult Blood (Negative) Urine Nitrite (Negative) Urine Bilirubin (Negative) Urine Urobilinogen (0.2-1.0) Ur Leukocyte Esterase (Negative) Urine RBC (0-5) /hpf Urine WBC (0-5) /hpf Ur Squamous Epith Cells (0-5) /hpf Amorphous Sediment (NOT SEEN) /hpf Urine Bacteria (FEW) /hpf Urine Mucus (FEW) /hpf Urine HCG, Qual Negative (NEGATIVE) Urine Opiates Screen Negative (DRTJXA=074) Ur Buprenorphine Scrn Negative (CUTOFF=10) Ur Oxycodone Screen Negative (KXF7PV=417) Urine Methadone Screen Negative (OMVFBZ=182) Ur Propoxyphene Screen Negative (EAWIKM=509) Ur Barbiturates Screen Negative (MMZRAO=109) Ur Tricyclics Screen Negative (MWYMTV=302) Ur Phencyclidine Scrn Negative (CUTOFF=25) Ur Amphetamine Screen Presumptive positive H (SLSZBJ=739) U Methamphetamines Scrn Presumptive positive H (DGWJBC=676) U Benzodiazepines Scrn Negative (TLKFPX=984) U Cocaine Metab Screen Negative (AFWIBH=524) U Marijuana (THC) Screen Negative (CUTOFF=50) 04/21/19 Range/Units 05:26 WBC (3.98-10.04) K/mm3 RBC (3.98-5.22) M/mm3 Hgb (11.2-15.7) gm/L Hct (34.1-44.9) % MCV (79.4-94.8) fl MCH (25.6-32.2) pg MCHC (32.2-35.5) g/dl RDW Std Deviation (36.4-46.3) fL Plt Count (182-369) K/mm3 MPV (9.4-12.3) fl Neut % (Auto) (34.0-71.1) % Lymph % (Auto) (19.3-51.7) % [place] % (Auto) (4.7-12.5) % Eos % (Auto) (0.7-5.8) Baso % (Auto) (0.1-1.2) % Neut # (Auto) (1.56-6.13) K/mm3 Lymph # (Auto) (1.18-3.74) K/mm3 [place] # (Auto) (0.24-0.36) K/mm3 Eos # (Auto) (0.04-0.36) K/mm3 Baso # (Auto) (0.01-0.08) K/mm3 D-Dimer, Quantitative (0.19-0.50) mg/L Puncture Site ABG pH (7.35-7.45) ABG pCO2 (35.0-45.0) mmHg ABG pO2 (80.0-100.0) mmHg ABG HCO3 (22.0-26.0) meq/L ABG O2 Saturation (96.0-97.0) % ABG Base Excess (-2-2.0) Talha Test A-a Gradient mmHg O2 Delivery Device FiO2 (21.00-100.00) % Sodium 142 (136-145) mEq/L Potassium 3.7 (3.5-5.1) mEq/L Chloride 107 (98-107) mEq/L Carbon Dioxide 26 (21-32) mEq/L Anion Gap 12.7 (5-15) BUN 15 (7-18) mg/dL Creatinine 0.6 (0.55-1.02) mg/dL Est Cr Clr Drug Dosing 89.35 mL/min Estimated GFR (MDRD) > 60 (>60) mL/min BUN/Creatinine Ratio 25.0 H (14-18) Glucose 96 (74-106) mg/dL POC Glucose (70-105) mg/dL Calcium 8.0 L (8.5-10.1) mg/dL Magnesium 1.7 L (1.8-2.4) mg/dl Total Bilirubin (0.2-1.0) mg/dL AST (15-37) U/L ALT (14-59) U/L Alkaline Phosphatase (46-116) U/L Troponin I (0.00-0.056) ng/mL Total Protein (6.4-8.2) g/dl Albumin (3.4-5.0) g/dl Globulin gm/dL Albumin/Globulin Ratio (1-2) Triglycerides 25 (<150) mg/dL Cholesterol 117 (<200) mg/dL LDL Cholesterol Direct 60 (<100) mg/dL HDL Cholesterol 54.0 (40-59) mg/dL TSH 3rd Generation (0.358-3.74) uIU/mL Urine Color (Yellow) Urine Appearance (Clear) Urine pH (5.0-8.0) Ur Specific [place] (1.005-1.030) Urine Protein (Negative) Urine Glucose (UA) (Negative) Urine Ketones (Negative) Urine Occult Blood (Negative) Urine Nitrite (Negative) Urine Bilirubin (Negative) Urine Urobilinogen (0.2-1.0) Ur Leukocyte Esterase (Negative) Urine RBC (0-5) /hpf Urine WBC (0-5) /hpf Ur Squamous Epith Cells (0-5) /hpf Amorphous Sediment (NOT SEEN) /hpf Urine Bacteria (FEW) /hpf Urine Mucus (FEW) /hpf Urine HCG, Qual (NEGATIVE) Urine Opiates Screen (RINOHP=211) Ur Buprenorphine Scrn (CUTOFF=10) Ur Oxycodone Screen (YYB1LP=917) Urine Methadone Screen (HGFDCK=286) Ur Propoxyphene Screen (JRQMXN=554) Ur Barbiturates Screen (XOZVYN=135) Ur Tricyclics Screen (EBPQEE=908) Ur Phencyclidine Scrn (CUTOFF=25) Ur Amphetamine Screen (WLKOQG=859) U Methamphetamines Scrn (QKTFRO=283) U Benzodiazepines Scrn (KWMIKF=709) U Cocaine Metab Screen (XMLYOX=469) U Marijuana (THC) Screen (CUTOFF=50) Med Orders - Current: Current Medications Acetaminophen (Tylenol) 650 mg PO Q4H PRN PRN Reason: Pain (Mild 1-3)/fever Albuterol/Ipratropium (Duoneb 3.0-0.5 Mg/3 Ml) 3 ml NEB Q4H PRN PRN Reason: Shortness Of Breath/wheezing Aspirin (Halfprin) 81 mg PO DAILY DAVID Last Admin: 04/21/19 09:03 Dose: 81 mg Bisacodyl (Dulcolax) 5 mg PO DAILY PRN PRN Reason: Constipation Docusate Sodium (Colace) 100 mg PO BID PRN PRN Reason: Constipation Hydromorphone HCl (Dilaudid) 0.25 mg IVPUSH Q2H PRN PRN Reason: Pain (severe 7-10) Sodium Chloride (Normal Saline) 1,000 mls @ 100 mls/hr IV ASDIRECTED [facility] Last Admin: 04/21/19 09:03 Dose: 100 mls/hr Promethazine HCl 6.25 mg/ (Sodium Chloride) 50.25 mls @ 100 mls/hr IV Q6H PRN PRN Reason: Nausea/Vomiting Sodium Chloride (Normal Saline) 100 mls @ 75 mls/hr IV ASDIRECTED [facility] Last Admin: 04/21/19 09:07 Dose: 75 mls/hr Ketorolac Tromethamine (Toradol) 30 mg IV Q6H PRN PRN Reason: Pain (moderate 4-6) Stop: 04/25/19 22:47 Lorazepam (Ativan) 0.5 mg IV Q6H PRN PRN Reason: Anxiety Miscellaneous Information (Remove Patch) 1 ea TRDERM DAILY [facility] Nicotine (Habitrol) 21 mg TRDERM DAILY [facility] Last Admin: 04/21/19 09:04 Dose: 21 mg Ondansetron HCl (Zofran) 4 mg IV Q6H PRN PRN Reason: Nausea/Vomiting Polyethylene Glycol (Miralax) 17 gm PO DAILY PRN PRN Reason: Constipation Risperidone (Risperidal) 1 mg PO DAILY [facility] Last Admin: 04/21/19 14:01 Dose: Not Given Senna/Docusate Sodium (Senna Plus) 1 tab PO BID PRN PRN Reason: Constipation Sodium Chloride (Saline Flush) 10 ml FLUSH ONETIME PRN PRN Reason: IV FLUSH Last Admin: 04/21/19 09:07 Dose: 10 ml Temazepam (Restoril) 15 mg PO BEDTIME PRN PRN Reason: Sleep Discontinued Medications Aspirin (Aspirin) 324 mg PO ONETIME STA Stop: 04/20/19 21:38 Last Admin: 04/20/19 21:54 Dose: 324 mg Magnesium Sulfate/Dextrose 1 (gm/ Premix) 100 mls @ 100 mls/hr IV ONETIME ONE Stop: 04/21/19 09:59 Last Admin: 04/21/19 09:03 Dose: 100 mls/hr Iopamidol (Isovue-370 (76%)) 100 ml IVPUSH ONETIME ONE Stop: 04/21/19 07:47 Last Admin: 04/21/19 09:07 Dose: 100 ml Simvastatin (Zocor) 20 mg PO BEDTIME DAVID - Exam General: Reports: Alert, Oriented HEENT: Reports: Pupils Equal, Pupils Reactive, EOMI, Mucous Membr. Moist/[place] Neck: Reports: Supple Lungs: Reports: Clear to Auscultation, Normal Respiratory Effort Cardiovascular: Reports: Regular Rate, Regular Rhythm GI/Abdominal Exam: Normal Bowel Sounds, Soft, Non-Tender, No Organomegaly, No Distention, No Abnormal Bruit, No Mass, Pelvis Stable (Female) Exam: Deferred. No: Normal External Exam, Normal Speculum Exam, Normal Bimanual Exam Rectal (Female) Exam: Deferred. No: Normal Exam, Normal Rectal Tone Back Exam: Reports: Normal Inspection, Full Range of Motion Extremities: Normal Inspection, Normal Range of Motion, Non-Tender, No Pedal Edema, Normal Capillary Refill Skin: Reports: Warm, Dry, Intact Wound/Incisions: Reports: Healing Well Neurological: Reports: No New Focal Deficit Psy/Mental Status: Reports: Alert, Normal Affect, Normal Mood
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
[2019-04-21 16:47] VITALS: BP 113/65
[2019-04-21] MEDS ORDERED: Simvastatin 20 MG Tab PO SCH (21:00)
== END 2019-04-21 16:13 | disposition home or self-care (01) ==
LOC: JD.ED 18:45 → JD.MS 22:20
PROVIDERS: ADMIT Internal Medicine; ATTEND Internal Medicine
DX: R20.2 Paresthesia of skin (principal); R20.0 Anesthesia of skin; R53.1 Weakness; K21.9 Gastro-esophageal reflux disease without esophagitis; F31.0 Bipolar disorder, current episode hypomanic; F17.210 Nicotine dependence, cigarettes, uncomplicated; F41.9 Anxiety disorder, unspecified; F29 Unspecified psychosis not due to a substance or known physiological condition; G47.00 Insomnia, unspecified; M19.90 Unspecified osteoarthritis, unspecified site; Z88.8 Allergy status to other drugs, medicaments and biological substances; Z79.82 Long term (current) use of aspirin; Z79.899 Other long term (current) drug therapy
CPT/HCPCS: 36415; 36600; 70450; 70496; 70498; 70551; 71046; 80048; 80053; 80061; 80306; 81001; 81025; 82803; 82962; 83735; 84443; 84484; 85025; 85379; 92610; 93005; 93306; 97162; 99285; A9270; J3475; J7030; J7040; Q3014; Q9967; 96361; 96365; G0378

== ENCOUNTER 2019-05-24 22:42 | Emergency (ER) | payer MEDICAID ==
[2019-05-24 22:48] VITALS: BP 100/58; PULSE 84
[2019-05-24] MEDS ORDERED: HYDROmorphone 1 MG/ML Syringe IVPUSH ONE (23:04)
[2019-05-24] MEDS ORDERED: Dexamethasone 10 MG/ML SDV IVPUSH ONE (23:04)
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
[2019-05-24] MEDS ORDERED: Ketorolac 30 MG/ML SDV IVPUSH SCH (23:15)
[2019-05-24] MEDS ORDERED: Dextrose 5%-0.9% NaCl 1,000 ML IV SCH (23:15)
== END 2019-05-25 04:00 | disposition home or self-care (01) ==
LOC: JD.ED 22:42
DX: M54.5 Low back pain (principal); G89.29 Other chronic pain; M46.1 Sacroiliitis, not elsewhere classified; F41.9 Anxiety disorder, unspecified; F32.9 Major depressive disorder, single episode, unspecified; F17.210 Nicotine dependence, cigarettes, uncomplicated; Z88.8 Allergy status to other drugs, medicaments and biological substances; Z79.82 Long term (current) use of aspirin; Z79.899 Other long term (current) drug therapy
CPT/HCPCS: 36415; 80053; 85025; 85652; 86140; 96361; 96374; 96375; 99283; J1100; J1170; J1885; J7042

== ENCOUNTER 2019-09-14 13:57 | Emergency (ER) | payer MEDICAID ==
[2019-09-14 14:08] VITALS: BP 114/68; PULSE 73
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
--- NOTE | 2019-09-14 15:25 | CT ---
Head CT Technique: Multiple axial sections through the brain were obtained. Intravenous contrast was not utilized. Comparison: Previous MRI brain of 04/21/19. Findings: Ventricles along with basal cisterns and sulci over the convexities are within normal limits for the patient's age. No abnormal parenchymal densities are seen. No evidence of intracranial hemorrhage. No midline shift or mass-effect is seen. Bone window settings were reviewed. Visualized mastoid sinuses and paranasal sinuses show nothing acute. No acute calvarial abnormality is appreciated. Impression: 1. Nothing acute is appreciated on noncontrast head CT exam. Diagnostic code #1 This report was dictated in [place] Standard Time
== END 2019-09-14 17:40 | disposition home or self-care (01) ==
LOC: JD.ED 13:57
DX: R42 Dizziness and giddiness (principal); F41.9 Anxiety disorder, unspecified; R07.89 Other chest pain; F32.9 Major depressive disorder, single episode, unspecified; K21.9 Gastro-esophageal reflux disease without esophagitis; E66.9 Obesity, unspecified; Z68.32 Body mass index [BMI] 32.0-32.9, adult; Z79.899 Other long term (current) drug therapy; Z87.891 Personal history of nicotine dependence; Z88.8 Allergy status to other drugs, medicaments and biological substances
CPT/HCPCS: 36415; 70450; 70450-26; 80053; 80306; 85025; 99283; 99284-25

== ENCOUNTER 2020-07-23 02:47 | Emergency (ER) | payer MEDICAID ==
[2020-07-23 03:20] VITALS: BP 119/59; PULSE 77
--- NOTE | 2020-07-23 04:06 | EDM.PDOC ---
ED HPI GENERAL MEDICAL PROBLEM - General Chief Complaint: General Stated Complaint: ARMS TINGLE/PINCHING LEFT SIDE OF CHEST Time Seen by Provider: 07/23/20 03:05 Source of Information: Reports: Patient History Limitations: Reports: Other (The patient has difficulty staying on subject) - History of Present Illness INITIAL COMMENTS - FREE TEXT/NARRATIVE: Ms. Syed is a pleasant 45-year-old woman who now presents the ED after developing tingling and numbness to both of her upper extremities, along with pain and stiffness to both of her upper shoulders, along with mid central chest pain, around 23:00 tonight. The patient states that she was homeless, living in her car, for the past several months, and that caused her to have a great deal of stress. Additionally, she states that one of her sisters about 3 years ago, which is causing her a great deal of sadness, and that her other sister is currently sick. She states that while homeless, she did not take any of her medications, including her escitalopram and temazepam, however, she states that she restarted these medicines this past , 07/18/2020. The patient states that she saw her PCP recently, and that a number of tests were ordered, and she discussed her situation with a senior wind energy consultant, however, no new prescriptions were given. Here in the ED, the patient is found to be hemodynamically stable, afebrile, saturating 97% on room air. Other than her stress and sadness, the patient denies having a recent fever, chills, sore throat, ear pain, nasal or sinus congestion, cough, dyspnea, chest pain, palpitations, nausea, vomiting, constipation, diarrhea, abdominal pain, urinary symptoms, recent weight gain or weight loss, recent bloody bowel movements or black bowel movements, recent joint aches, headaches, or rashes. The patient's PCP is Dr. Jacques Roberson. Her Psychiatrist is Dr. Liliana Lopez. The patient states that she has not seen Dr. Lopez since October. The patient states that she does not get influenza vaccines. Chest Pain Score (Numeric/FACES): 7 - Related Data Allergies Allergy/AdvReac Type Severity Reaction Status Date / Time methylprednisolone Allergy Itching Verified 07/23/20 03:20 [From Medrol] Home Meds: Home Meds Temazepam [Restoril] 15 mg PO BEDTIME PRN #30 cap 04/21/19 [Rx] Escitalopram [Lexapro] 10 mg PO DAILY 09/14/19 [History] Nicotine [Nicotine Patch] 21 mg TD DAILY 09/14/19 [History] Pantoprazole Sodium [Protonix] 20 mg PO DAILY 09/14/19 [History] Topiramate [Topamax] 75 mg PO BID 09/14/19 [History] Past Medical History HEENT History: Reports: Impaired Vision Gastrointestinal History: Reports: GERD Musculoskeletal History: Reports: Arthritis, Fracture (left forearm) Psychiatric History: Reports: Anxiety, Bipolar, Depression, Other (See Below) (Insomnia) Endocrine/Metabolic History: Reports: Obesity/BMI 30+ - Infectious Disease History Infectious Disease History: Reports: Chicken Pox - Past Surgical History Musculoskeletal Surgical History: Reports: Carpal Tunnel (bilateral), Nerve Relocation (left ulnar 10/18/2017), ORIF (left forearm), Other (See Below) (Trigger finger release) Social & Family History - Family History Family Medical History: No Pertinent Family History - Tobacco Use Tobacco Use Status *Q: Current Some Day Tobacco User Years of Tobacco use: 28 Packs/Tins Daily: 0.1 Packs/Tins Daily Comment: Down from 2 ppd - Caffeine Use Caffeine Use: Reports: Coffee - Alcohol Use Alcohol Use History: No - Recreational Drug Use Recreational Drug Use: Yes Drug Use in Last 12 Months: No Recreational Drug Type: Reports: Cocaine (last snorted mid-90's), Marijuana/Hashish (last smoked mid-90's) - Living Situation & Occupation Living situation: Reports: Single, Alone Occupation: Unemployed ED ROS GENERAL - Review of Systems Review Of Systems: Comprehensive ROS is negative, except as noted in HPI. ED EXAM, GENERAL - Physical Exam Exam: See Below Exam Limited By: No Limitations General Appearance: Alert, WD/WN, No Apparent Distress, Anxious Eye Exam: Bilateral Eye: EOMI, Normal Inspection Ears: Normal External Exam, Normal Canal, Hearing Grossly Normal, Normal TMs Nose: Normal Inspection, Normal Mucosa, No Blood Throat/Mouth: Normal Inspection, Normal Lips, Normal Teeth, Normal Gums, Normal Oropharynx, Normal Voice, No Airway Compromise Head: Atraumatic, Normocephalic Neck: Normal Inspection, Supple, Non-Tender, Full Range of Motion Respiratory/Chest: No Respiratory Distress, Lungs Clear, Normal Breath Sounds, No Accessory Muscle Use Cardiovascular: Normal Peripheral Pulses, Regular Rate, Rhythm, No Edema, No Gallop, No JVD, No Murmur, No Rub Peripheral Pulses: 3+: Radial (L), Radial (R) GI/Abdominal: Normal Bowel Sounds, Soft, Non-Tender, No Organomegaly, No Distention, No Abnormal Bruit, No Mass Back Exam: Normal Inspection, Full Range of Motion, NT Extremities: Normal Inspection, Normal Range of Motion, No Pedal Edema, Normal Capillary Refill Neurological: Alert, Oriented, CN II-XII Intact, Normal Cognition, No Motor/Sensory Deficits Psychiatric: Anxious Skin Exam: Warm, Dry, Intact, Normal Color, No Rash Course - Vital Signs Last Recorded V/S: Last Vital Signs Temp 36.6 C 07/23/20 03:16 Pulse 77 07/23/20 03:16 Resp 16 07/23/20 03:16 BP 119/59 L 07/23/20 03:16 Pulse Ox 97 07/23/20 03:16 - Re-Assessments/Exams Free Text/Narrative Re-Assessment/Exam: 07/23/20 04:01 As above, the patient developed bilateral upper extremity tingling and numbness, along with midsternal chest pain and bilateral upper shoulder pain and stiffness, associated with recent increased stress and a lot of crying. She revealed that, due to homelessness, she has been off all of her medications for the past 3 months, but that she now has an apartment for the past couple of weeks and restarted her medications this past . I explained to the patient that Lexapro is an excellent antidepressant, but that it typically takes a few weeks before it takes effect. The patient will simply need to be patient until that time, with the knowledge that in about a month, she should start to feel back to normal. Unfortunately, there are no other medicines that can be g iven to expedite that process. The patient accepted this. Departure - Departure Time of Disposition: 04:03 Disposition: Home, Self-Care 01 Condition: Good Clinical Impression: Anxiety, Depression - Discharge Information *PRESCRIPTION DRUG MONITORING PROGRAM REVIEWED*: Not Applicable *COPY OF PRESCRIPTION DRUG MONITORING REPORT IN PATIENT ESTEPHANIE: Not Applicable Referrals: Jacques Roberson MD [Primary Care Provider] - Free,Liliana Pedraza MD [Ordering Only Provider] - Additional Instructions: You were seen in the emergency room after developing tingling and numbness to both of your arms, along with pain and stiffness to both of your upper shoulders, and mid chest pain. Based on your history and physical examination, your symptoms are due to anxiety. As discussed, your symptoms have worsened because you have been off of your antianxiety and antidepression medicines for the past few months, however, you have now restarted them. As discussed, Lexapro is a very good anti-anxiety and antidepression medicine, however, it typically takes a few weeks or more before it takes effect. Until that time, he will simply need to be patient. You should expect to start to feel back to normal in about a month. We recommend that you follow-up with your Psychiatrist, Dr. Liliana Lopez, at the next available appointment. If any other problems, please do not hesitate to return to the ER. Sepsis Event Note (ED) - Evaluation Sepsis Screening Result: No Definite Risk - Focused Exam Vital Signs: Vital Signs Temp Pulse Resp BP Pulse Ox 07/23/20 03:16 36.6 C 77 16 119/59 L 97
== END 2020-07-23 04:23 | disposition home or self-care (01) ==
LOC: JD.ED 02:47
DX: F41.9 Anxiety disorder, unspecified (principal); F32.9 Major depressive disorder, single episode, unspecified; F17.210 Nicotine dependence, cigarettes, uncomplicated; K21.9 Gastro-esophageal reflux disease without esophagitis; E66.9 Obesity, unspecified; Z88.8 Allergy status to other drugs, medicaments and biological substances; Z79.899 Other long term (current) drug therapy
CPT/HCPCS: 99283; 99284

== ENCOUNTER 2021-04-15 12:10 | Emergency (ER) | payer MEDICAID ==
[2021-04-15 12:16] VITALS: BP 117/70; PULSE 72
--- NOTE | 2021-04-15 13:01 | CT ---
Head CT Technique: Multiple axial sections to the brain were obtained. Intravenous contrast was not utilized. Reconstructed coronal and sagittal images were obtained. Comparison: Prior head CT study of 09/14/19. Findings: Ventricles along with basal cisterns and sulci over the convexities are within normal limits for the patient's age. No abnormal parenchymal densities are seen. No evidence of intracranial hemorrhage is seen. No midline shift or mass-effect is identified. Bone window settings were reviewed. Visualized mastoid sinuses and paranasal sinuses show nothing acute. No acute calvarial abnormality is seen. Impression: 1. Nothing acute is seen on noncontrast head CT study. 2. No change is seen from previous head CT. Diagnostic code #1
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
--- NOTE | 2021-04-15 15:19 | CR ---
Chest: 2 views of the chest were obtained. Comparison: Prior chest x-ray of 04/20/19. Heart size and mediastinum are within normal limits. Lungs are clear with no acute parenchymal change. Slight degenerative change is scattered within the spine. Old healed fracture deformity is seen within the left clavicle. Impression: 1. Incidental findings. 2. Nothing acute is seen on 2 view chest x-ray. Diagnostic code #2
--- NOTE | 2021-04-15 15:24 | CR ---
Left wrist: 4 views of the left wrist were obtained. Comparison: No prior wrist study is available. Ununited ulnar styloid process fracture is noted which appears chronic. Plate and screws are partially seen within the distal radius affixing an old healed fracture. Fracture is noted within the distal fifth metacarpal shaft which shows some callus and is likely subacute in age. Joint spaces within the wrist are maintained. No acute fracture, dislocation or other bony abnormality is appreciated. Impression: 1. Subacute fracture believed to be present within the distal fifth metacarpal shaft. 2. Old ununited fracture within the ulnar styloid process. Plate and screws within the distal radius affixing old healed fracture. 3. Nothing acute is appreciated on left wrist exam. Diagnostic code #2
== END 2021-04-15 14:25 | disposition home or self-care (01) ==
LOC: JD.ED 12:10
DX: S63.502A Unspecified sprain of left wrist, initial encounter (principal); S00.03XA Contusion of scalp, initial encounter; S20.221A Contusion of right back wall of thorax, initial encounter; K21.9 Gastro-esophageal reflux disease without esophagitis; Z79.899 Other long term (current) drug therapy; Z88.8 Allergy status to other drugs, medicaments and biological substances; Y04.2XXA Assault by strike against or bumped into by another person, initial encounter
CPT/HCPCS: 70450; 70450-26; 71046; 71046-26; 73110-26-LT; 73110-LT; 99284; 99284-25

== ENCOUNTER 2022-04-11 22:05 | Emergency (ER) | payer MEDICAID ==
[2022-04-11] MEDS ORDERED: Sodium Chloride 0.9% 10 ML Syringe FLUSH PRN (22:44)
[2022-04-11] MEDS ORDERED: Sodium Chloride 0.9% 1,000 ML IV ONE (22:46)
[2022-04-11] MEDS ORDERED: Ondansetron 4 MG/2 ML SDV IVPUSH ONE (22:49)
[2022-04-11] MEDS ORDERED: Lactated Ringers 1,000 ML IV SCH (23:00)
[2022-04-11 23:57] LABS: ESTIMATED GFR 116 mL/min (>60)
[2022-04-11 23:59] LABS: ACETAMINOPHEN 0 ug/mL (10-30)
[2022-04-12] MEDS: Potassium Chloride 10 MEQ in Premix Bag 1 BAG IV SCH ×4 (01:48→05:00)
[2022-04-12] MEDS ORDERED: Sodium Chloride 0.9% 1,000 ML IV ONE (07:34)
[2022-04-12 07:47] VITALS: PULSE 78
[2022-04-12 10:43] VITALS: BP 94/57
== END 2022-04-12 08:30 | disposition home or self-care (01) ==
LOC: JD.ED 22:05
DX: E87.6 Hypokalemia (principal); F10.10 Alcohol abuse, uncomplicated; K21.9 Gastro-esophageal reflux disease without esophagitis; E66.9 Obesity, unspecified; Z68.30 Body mass index [BMI] 30.0-30.9, adult; Z79.899 Other long term (current) drug therapy; Z88.8 Allergy status to other drugs, medicaments and biological substances
CPT/HCPCS: 36415; 73630; 80053; 80143; 80179; 80306; 80307; 81003; 81025; 83735; 84132; 84443; 85025; 96361; 96365; 96366; 96375; 99284; J2405; J3480; J3490; J7030; J7120; 99283

== ENCOUNTER 2022-09-16 18:53 | Emergency (ER) | payer MEDICAID ==
[2022-09-16] MEDS ORDERED: Sodium Chloride 0.9% 10 ML Syringe FLUSH PRN (21:09)
[2022-09-16] MEDS ORDERED: cefTRIAXone 2 GM in Sodium Chloride 0.9% 100 ML IV ONE (21:29)
[2022-09-16 23:19] VITALS: BP 115/61; PULSE 78
== END 2022-09-17 00:05 | disposition home or self-care (01) ==
LOC: JD.ED 18:53
DX: L03.116 Cellulitis of left lower limb (principal); L03.115 Cellulitis of right lower limb; K21.9 Gastro-esophageal reflux disease without esophagitis; E66.9 Obesity, unspecified; Z68.32 Body mass index [BMI] 32.0-32.9, adult; Z88.8 Allergy status to other drugs, medicaments and biological substances; Z72.0 Tobacco use; Z79.899 Other long term (current) drug therapy
CPT/HCPCS: 36415; 71045; 80053; 80306; 81003; 83605; 83880; 85007; 85027; 85610; 86140; 87040; 96374; 99283; J0696

== ENCOUNTER 2024-05-30 21:37 | Emergency (ER) | payer MEDICAID ==
[2024-05-30 21:45] VITALS: BP 136/100; PULSE 77
[2024-05-31] MEDS: Acetaminophen 325 MG Tab PO ONE (00:08)
[2024-05-31] MEDS: traMADol 50 MG Tab PO ONE (00:08)
[2024-05-31] MEDS: Ibuprofen 600 MG Tab PO ONE (00:08)
== END 2024-05-31 01:21 | disposition home or self-care (01) ==
LOC: JD.ED 21:37
DX: S50.12XA Contusion of left forearm, initial encounter (principal); K21.9 Gastro-esophageal reflux disease without esophagitis; E66.9 Obesity, unspecified; Z79.899 Other long term (current) drug therapy; Z88.8 Allergy status to other drugs, medicaments and biological substances; Z68.36 Body mass index [BMI] 36.0-36.9, adult; Y04.8XXA Assault by other bodily force, initial encounter
CPT/HCPCS: 70450; 72125; 72128; 72131; 73030; 73090; 99284; A9270